=== PATIENT | male | born 1950 | race Caucasian/White ===

== ENCOUNTER 2020-09-03 17:39 | Observation (INO) | payer MEDICARE, OTHER ==
[~2020-09-03 17:39] MED LIST: IBU800 M1 PO; NO HOME MEDICATIONS; SAW PALMETTO6 X SL
[2020-09-03] MEDS ORDERED: PYRIDIUM200 M1 PO (19:01)
[2020-09-03] MEDS ORDERED: SYNTHROID 0.0.025 MG PO (19:02)
[2020-09-03] MEDS ORDERED: LEVAQUIN 5500 MG/TA1 PO (19:38)
[2020-09-03 21:15] VITALS: BP 169/72; PULSE 100
--- NOTE | 2020-09-03 21:15 | NUR ---
Pt. up to the floor from PACU. Pt. is A&OX3, assessment complete. INT to rt. forearm patent. Xavier catheter to DD with orange urine noted. Pt. denies pain or other needs, call light within reach.
[2020-09-03 21:30] VITALS: BP 169/71; PULSE 96
[2020-09-03 21:45] VITALS: BP 169/77; PULSE 105
[2020-09-03 22:00] VITALS: BP 176/72; PULSE 102
--- NOTE | 2020-09-03 22:15 | NUR ---
Ok to discharge in the am
[2020-09-03 22:30] VITALS: BP 156/77; PULSE 93
[2020-09-03 23:00] VITALS: BP 156/65; PULSE 99
[2020-09-04] VITALS: BP 146/61; PULSE 96
[2020-09-04 01:17] VITALS: BP 134/56; PULSE 89
[2020-09-04 04:34] VITALS: BP 150/60; PULSE 95; TEMP 98.4
[2020-09-04 07:32] VITALS: BP 133/73; PULSE 78; TEMP 98.1
--- NOTE | 2020-09-04 10:11 | NUR ---
ASSESSMENTS COMPLETE, VSS, DR CHIANG IN TO SEE PT, DISCHARGE ORDERS RECIEVED AND REVIEWED WITH PT. LEG BAG TEACHING COMPLETE. PT TAKEN BY STAFF TO POV.
== END 2020-09-04 10:15 | disposition home or self-care (01) ==
LOC: COL.ER 17:39 → JCC 18:58 → COL.ER 19:30 → JCC 09-04 10:15
PROVIDERS: ADMIT Urology
DX: D49.4 Neoplasm of unspecified behavior of bladder (principal); N32.0 Bladder-neck obstruction; R33.9 Retention of urine, unspecified; E29.1 Testicular hypofunction; M50.90 Cervical disc disorder, unspecified, unspecified cervical region; Z90.79 Acquired absence of other genital organ(s); Z79.899 Other long term (current) drug therapy; Z85.47 Personal history of malignant neoplasm of testis
CPT/HCPCS: C1769; C1894; G0378; J0360; J1100; J1885; J2270; J2405; J2704; J3010

== ENCOUNTER 2020-09-25 07:34 | Day surgery (SDC) | payer MEDICARE, OTHER ==
[~2020-09-25] VITALS: Ht 172.7 cm; Wt 111.7 kg
[~2020-09-25 07:34] MED LIST changes: +LEVAQUIN 5500 MG/TA1 PO; +PYRIDIUM200 M1 PO; +SYNTHROID 0.0.025 MG PO
[2020-09-25 08:12] VITALS: BP 178/78; PULSE 69; TEMP 98.7
[2020-09-25] MEDS ORDERED: ALEVE 220MG220 MG PO (08:29)
[2020-09-25] MEDS ORDERED: NORCO 325 MG-51 TAB PO (08:30)
[2020-09-25] MEDS ORDERED: SYNTHROID0.05 MG/TA PO (08:30)
--- NOTE | 2020-09-25 08:33 | NUR ---
TO IVIS AT 0750- CALL LIGHT IN REACH
[2020-09-25 09:48] VITALS: BP 154/73; PULSE 64; TEMP 97.1
--- NOTE | 2020-09-25 09:48 | NUR ---
TO RM 6 PER CART FROM OR. ALERT ORIENTED X3, AWAKE AND TALKING TO STAFF. FOLDED 2X2 OVER UPPER LEFT CHEST CLEAN DRY INTACT. BANDAIDE ON NECK CLEAN DRY INTACT. PATIENT DENIES PAIN OR DISCOMFORT DENIES NAUSEA. RECEIVED OJ AND MUFFIN.
[2020-09-25 10:00] VITALS: BP 160/80; PULSE 65
--- NOTE | 2020-09-25 10:05 | NUR ---
DR YAP INTO TALK WITH PATIENT. ATE 100% AND TOLERATED WELL.
--- NOTE | 2020-09-25 10:16 | NUR ---
RECEIVED DISCHARGE INSTRUCTIONS AND VERBALIZED UNDERSTANDING. DISCONTINUED IV AND INT PATIENT GETTING DRESSED.
--- NOTE | 2020-09-25 10:25 | NUR ---
DRESSED AND AMBULATED TO BATHROOM CALLED RIDE TO PICK HIM UP.
--- NOTE | 2020-09-25 10:37 | NUR ---
DISCHARGED PER WC BY NURSINGS STAFF TO PRIVATE CAR IN CARE OF SON.
== END 2020-09-25 10:46 | disposition home or self-care (01) ==
LOC: SDCO 07:34
DX: C67.2 Malignant neoplasm of lateral wall of bladder (principal); E03.9 Hypothyroidism, unspecified; G47.33 Obstructive sleep apnea (adult) (pediatric); M50.30 Other cervical disc degeneration, unspecified cervical region; Z20.822 Contact with and (suspected) exposure to COVID-19; Z85.820 Personal history of malignant melanoma of skin; Z85.47 Personal history of malignant neoplasm of testis; Z79.899 Other long term (current) drug therapy
CPT/HCPCS: C1788; J0690; J1644; J2704; J7120